=== PATIENT | male | born 1970 | race Caucasian/White ===

== ENCOUNTER → 2019-10-15 | Outpatient (CLI) | payer OTHER ==
[~2019-10-15] MED LIST: AMBIEN 5MG TABLE5 MG PO; ATIVAN 1MG T1 MG/TAB PO; DITROPAN XL10 MG PO; INDERAL40 MG PO; NEURONTIN300 MG/CAP PO; PERCOCET 325 MG1 TA2 PO; VALIUM 5MG T5 MG/TAB PO
== END ==
LOC: COL.RAD 12:47
DX: R10.11 Right upper quadrant pain (principal)

== ENCOUNTER 2019-11-22 10:30 | Outpatient (RCR) | payer OTHER | END 2020-02-15 13:17 | disposition home or self-care (01) | LOC: WSOH 10:30 | DX: S61.412A Laceration without foreign body of left hand, initial encounter (principal); E78.00 Pure hypercholesterolemia, unspecified; M10.9 Gout, unspecified; R61 Generalized hyperhidrosis; Z98.890 Other specified postprocedural states; Z87.891 Personal history of nicotine dependence; Y99.0 Civilian activity done for income or pay ==

== ENCOUNTER 2024-05-04 07:10 | Day surgery (SDC) | payer OTHER ==
[~2024-05-04] VITALS: Ht 182.9 cm; Wt 126.7 kg
[~2024-05-04 07:10] MED LIST changes: +LR 1,000 ML IV SCH; +Ondansetron 4 MG/2 ML VIAL IV PRN
[2024-05-04] MEDS ORDERED: ASPIRIN 32325 MG/TAB PO (07:59)
[2024-05-04] MEDS ORDERED: ATARAX 25MG25 MG/TAB PO (08:03)
[2024-05-04] MEDS ORDERED: DITROPAN XL15 MG PO (08:03)
[2024-05-04] MEDS ORDERED: LIPITOR 40MG TA40 MG PO (08:03)
[2024-05-04] MEDS ORDERED: BELSOMRA20 MG PO (08:04)
[2024-05-04] MEDS ORDERED: ZYLOPRIM 300MG300 MG PO (08:04)
[2024-05-04] MEDS ORDERED: INDERAL40 MG PO (08:04)
[2024-05-04] MEDS ORDERED: TIROSINT50 MC1 PO (08:05)
[2024-05-04 08:12] VITALS: BP 137/89; PULSE 63; TEMP 97.9
[2024-05-04 08:50] VITALS: BP 106/88; PULSE 72
--- NOTE | 2024-05-04 08:50 | NUR ---
PATIENT AMBULATED TO CHAIR WITH STEADY GAIT, ASSIST OF 2. ALERT AND AWAKE. DENIES PAIN, NAUSEA AND SHORTNESS OF BREATH. BREATHING REGULAR AND UNLABORED ON ROOM AIR. SKIN WARM AND DRY. IV IN PLACE. NURSE HANDOFF COMPLETED IN ROOM. SEE CHART FOR VITAL SIGNS. PATIENT HAD VANILLA PUDDING AND APPLE JUICE. BOTH FOOD AND DRINK TOLERATED WELL. NO DYSPHAGIA. CALL LIGHT IN REACH. SPOUSE, [facility], PRESENT IN ROOM.
[2024-05-04 08:59] VITALS: BP 115/81; PULSE 74
[2024-05-04 09:15] VITALS: BP 119/77; PULSE 64
[2024-05-04 09:20] VITALS: BP 128/76; PULSE 60
--- NOTE | 2024-05-04 09:35 | NUR ---
0923: DISCHARGE TEACHING COMPLETED WITH PRINTED EDUCATION AND INSTRUCTIONS SENT HOME WITH PATIENT. PATIENT VERBALIZED UNDERSTANDING OF TEACHING. 0926: MET WITH PATIENT AND SPOUSE IN ROOM TO DISCUSS PROCEDURE. 0930: IV REMOVED. GAUZE AND COBAN PLACED OVER SITE. 0935: PATIENT DISCHARGED HOME WITH [facility].
== END 2024-05-04 09:35 | disposition home or self-care (01) ==
LOC: SDCO 07:10
DX: K22.2 Esophageal obstruction (principal); K29.31 Chronic superficial gastritis with bleeding; K21.01 Gastro-esophageal reflux disease with esophagitis, with bleeding
CPT/HCPCS: C1726; J2704; J7120